=== PATIENT | female | born 1965 | race Two or more races ===

== ENCOUNTER 2017-11-23 09:48 | Outpatient (CLI) | payer OTHER ==
[~2017-11-23 09:48] MED LIST: BENTYL; METFORMIN HCL500 MG; PNEU16DI2
[2017-11-25] MEDS ORDERED: NEXIUM40 M1 PO (14:20)
[2017-11-25] MEDS ORDERED: SYNTHROID200 MCG PO (14:20)
[2017-11-25] MEDS ORDERED: COZAAR25 MG PO (14:20)
== END 2017-11-23 09:55 | disposition home or self-care (01) ==
LOC: EKG 09:48 → LAB 09:48 → EKG 09:55
DX: K80.20 Calculus of gallbladder without cholecystitis without obstruction (principal); Z01.810 Encounter for preprocedural cardiovascular examination

== ENCOUNTER 2017-11-28 05:30 | Day surgery (SDC) | payer OTHER ==
[~2017-11-28 05:30] MED LIST changes: +COZAAR25 MG PO; +NEXIUM40 M1 PO; +SYNTHROID200 MCG PO
[2017-11-28] MEDS ORDERED: ULTRACET PO (11:06)
== END 2017-11-28 13:55 | disposition home or self-care (01) ==
LOC: CIR.AMB 05:30
DX: K80.10 Calculus of gallbladder with chronic cholecystitis without obstruction (principal)